=== PATIENT | female | born 1940 | race Caucasian/White ===

== ENCOUNTER 2017-06-18 12:56 | Emergency (ER) | payer MEDICARE, OTHER ==
--- OUTSIDE RECORDS SUMMARY | 2017-06-18 12:59 | XMS | Clinical Summary ---
:1940 Author Organization [facility] Address [address] [place] [address] Phone Care Team Providers Name Role Phone , Primary Care Provider Unavailable Allergies Not on File Current Medications Not on file Active Problems Not on file Social History Tobacco Use Types Packs/Day Years Used Date Never Assessed Sex Assigned at Date Recorded Not on file Last Filed Vital Signs Not on file Plan of Treatment Not on file Results Not on filefrom Last 3 Months
--- NOTE | 2017-06-18 14:34 | RAD ---
RIGHT FINGER THREE VIEWS: History: Right index finger pain and infection x one month. FINDINGS: There is edema of the index finger. There is severe osteoarthritic disease of the distal interphalan geal joint of the index finger with large osteophyte formation. No soft tissue gas is seen. IMPRESSION: 1. Abnormal edema of the radial soft tissues distal phalanx index finger may represent underlying ab scess or infection. 2. 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 3. No osteomyelitis is yet appreciated. If there is concern, MRI recommended. POS: [facility]
== END 2017-06-18 13:50 | disposition home or self-care (01) ==
LOC: SCSER 12:56
DX: L03.011 Cellulitis of right finger (principal); I10 Essential (primary) hypertension; Z79.82 Long term (current) use of aspirin; Z79.899 Other long term (current) drug therapy

== ENCOUNTER 2017-08-09 18:00 | Emergency (ER) | payer MEDICARE, OTHER ==
[2017-08-09] MEDS ORDERED: Ondansetron HCl/PF 4 MG/2 ML Vial ONE (18:09)
[2017-08-09 18:38] LABS: #Basophils 0.2 thou/uL (0.0-0.2); #Monocytes 0.8 thou/uL (0.11-0.59); #Neutrophils 10.2 thou/uL (1.40-6.50); %Basophils 1.6 % (0.0-1.0); %Eosinophils 0.4 % (0.0-10.0); %Lymphocytes 8.1 % (21.0-51.0); %Monocytes 6.4 % (0.0-10.0); Hematocrit 39.2 % (36.0-47.0); White Blood Cell (WBC) Count 12.3 thou/uL (4.8-10.8)
[2017-08-09 18:47] LABS: ALT (SGPT) 10 U/L (8-55); AST (SGOT) 15 U/L (5-34); Alkaline Phosphatase 82 U/L (40-150); Anion Gap 17 mmol/L (10-20); BUN (Urea Nitrogen) 22 mg/dL (9.8-20.1); Calc. Creatinine Clearance 0 mL/min (70-130); Carbon Dioxide 22 mmol/L (23-31); Chloride 99 mmol/L (98-107); Estimated GFR-MDRD 50; Globulin 4.8 g/dL (2.4-3.5); Protein, Total 8.4 g/dL (6.0-8.3)
[2017-08-09 18:51] LABS: Troponin I Less than 0.010 ng/mL (< 0.028)
[2017-08-09 19:01] LABS: Lactic Acid - Sepsis 1.1 mmol/L (0.5-2.2)
[2017-08-09] MEDS ORDERED: Metoclopramide HCl 10 MG/2 ML VIAL ONE (19:30)
--- NOTE | 2017-08-09 20:24 | RAD ---
CHEST ONE VIEW 08/09/17 HISTORY: Chest pain. Weakness. COMPARISON: 07/12/16. FINDINGS: The cardiac silhouette is magnified and enlarged. Pulmonary vasculature is upper limits of normal. Th e mediastinum is midline. No lobar consolidation or pneumothorax are apparent. Old rib fractures are evident. IMPRESSION: Chronic type findings are stable. No active cardiopulmonary abnormalities are demonstrated. POS: [facility]
[2017-08-09] MEDS ORDERED: Gabapentin 100 MG CAP ONE (21:02)
--- NOTE | 2017-08-09 21:43 | RAD ---
CHEST ONE VIEW ABDOMEN TWO VIEWS 08/09/17 HISTORY: Abdominal pain. Constipation. FINDINGS: The cardiac silhouette remains magnified and enlarged. Pulmonary vasculature is upper limits of reza l. Mediastinum is midline with aortic calcification. No lobar consolidation or evidence of free subdi aphragmatic gas is evident. Parenchymal scarring is noted at the left lung base. Metallic clips overlie the gallbladder fossa. Gas is demonstrated throughout the colon and rectum. No differential air fluid levels are evidence of free intraperitoneal gas. Old right rib fractures are again demonstrated. IMPRESSION: Nonspecific bowel gas pattern. POS: [facility]
[2017-08-09 21:53] LABS: Bilirubin Negative (Negative); Blood, Urine Small (Negative); Glucose, Urine (Dipstick) Negative (Negative); Ketone, Urine Negative (Negative); Nitrite Positive (Negative); Protein, Urine (Dipstick) Negative (Neg-Trace); Urobilinogen 0.2 mg/dL (0.2-1.0)
[2017-08-09 22:01] LABS: Bacteria/HPF 4+ HPF (None Seen); Hyaline Casts/LPF NONE SEEN LPF (0-3 Hyaline); RBC/HPF 0-3 HPF (0-3); Squamous Epithelial 0-3 HPF (0-3); WBC/HPF 21-50 HPF (0-3)
--- NOTE | 2017-09-13 12:49 | EKG ---
Test Reason : Blood Pressure : / mmHG Vent. Rate : 083 BPM Atrial Rate : 083 BPM P-R Int : 174 ms QRS Dur : 116 ms QT Int : 374 ms P-R-T Axes : 038 -54 080 degrees QTc Int : 439 ms Sinus rhythm with Premature atrial complexes Left anterior fascicular block Left ventricular hypertrophy with QRS widening and repolarization abnormality Abnormal ECG Confirmed by LUIS E MARIE ([id number]), assistant editor ALINA MCDANIEL ([id number]) on 09/13/2017 12:48:37 PM Referred By: Confirmed By:LUIS E MARIE
== END 2017-08-09 22:16 | disposition home or self-care (01) ==
LOC: SCSER 18:00
DX: R11.2 Nausea with vomiting, unspecified (principal); T37.5X5A Adverse effect of antiviral drugs, initial encounter; T40.2X5A Adverse effect of other opioids, initial encounter; B02.9 Zoster without complications; M25.551 Pain in right hip; M54.5 Low back pain; I10 Essential (primary) hypertension; Z79.899 Other long term (current) drug therapy
CPT/HCPCS: 36415; 71010; 74022; 74177; 80053; 81003; 81015; 82553; 83605; 84484; 85025; 87077; 87086; 87186; 93005; 96361; 96374; 96375; J2405; J2765

== ENCOUNTER 2017-08-12 09:01 | Emergency (ER) | payer MEDICARE, OTHER | END 2017-08-12 10:40 | disposition home or self-care (01) | LOC: ERS 09:01 | DX: R53.1 Weakness (principal); T40.2X5A Adverse effect of other opioids, initial encounter; I10 Essential (primary) hypertension; Z79.899 Other long term (current) drug therapy | CPT/HCPCS: 93005; 94760 ==

== ENCOUNTER 2017-10-11 20:19 | Emergency (ER) | payer MEDICARE, OTHER | END 2017-10-11 21:25 | disposition home or self-care (01) | LOC: SCSER 20:19 | DX: I10 Essential (primary) hypertension (principal) | CPT/HCPCS: 99283 ==

== ENCOUNTER 2018-01-16 07:45 | Outpatient (CLI) | payer MEDICARE, OTHER | END 2018-01-16 07:46 | disposition home or self-care (01) | LOC: BICCT 07:45 | DX: R59.0 Localized enlarged lymph nodes (principal) | CPT/HCPCS: 71250; 74177 ==

== ENCOUNTER 2018-01-30 09:30 | Outpatient (CLI) | payer MEDICARE, OTHER | END 2018-01-30 09:31 | disposition home or self-care (01) | LOC: BICMAMMO 09:30 | PROVIDERS: ATTEND Internal Medicine | DX: Z12.31 Encounter for screening mammogram for malignant neoplasm of breast (principal); N63.21 Unspecified lump in the left breast, upper outer quadrant; R92.1 Mammographic calcification found on diagnostic imaging of breast | CPT/HCPCS: 77063; 77067 ==

== ENCOUNTER 2018-01-31 18:20 | Emergency (ER) | payer MEDICARE, OTHER ==
[2018-01-31] MEDS ORDERED: HYDROcodone/Acetaminophen 5/325 mg Tablet ONE (19:03)
== END 2018-01-31 19:25 | disposition home or self-care (01) ==
LOC: SCSER 18:20
DX: M26.69 Other specified disorders of temporomandibular joint (principal); I10 Essential (primary) hypertension
CPT/HCPCS: 99283

== ENCOUNTER 2018-02-19 12:49 | Outpatient (CLI) | payer MEDICARE, OTHER | END 2018-02-19 12:50 | disposition home or self-care (01) | LOC: BICMAMMO 12:49 | PROVIDERS: ATTEND Internal Medicine | DX: R92.8 Other abnormal and inconclusive findings on diagnostic imaging of breast (principal) ==

== ENCOUNTER 2018-03-02 12:48 | Outpatient (CLI) | payer MEDICARE, OTHER | END 2018-03-02 12:49 | disposition home or self-care (01) | LOC: BICMAMMO 12:48 | PROVIDERS: ATTEND Internal Medicine | DX: N63.20 Unspecified lump in the left breast, unspecified quadrant (principal) | CPT/HCPCS: 77065; G0279 ==